=== PATIENT | female | born 1960 | race American Indian/Alaskan Native ===

== ENCOUNTER 2021-09-06 16:51 | Emergency (ER) | payer BC, SELFPAY ==
[2021-09-06 17:04] VITALS: BP 122/76; PULSE 77; RESP 14; TEMP 36.6; O2SAT 98; BMI 35.7
== END 2021-09-06 23:06 | disposition left against medical advice (07) ==
PROVIDERS: Emergency Provider Emergency Medicine; Family Provider Family Medicine; PCP Family Medicine
DX: Z53.21 Procedure and treatment not carried out due to patient leaving prior to being seen by health care provider (principal)
CPT/HCPCS: 99281

== ENCOUNTER → 2023-03-09 10:16 | Outpatient (CLI) | payer BC, SELFPAY ==
--- NOTE | 2023-03-09 10:18 | DI.RAD.S_ITS ---
PROCEDURE: XR FOOT RT MIN 3V INDICATIONS: foot pain TECHNIQUE: 3 views of the foot were acquired. COMPARISON: None. FINDINGS: Bones: No fractures or dislocations. No suspicious bony lesions. Plantar calcaneal spurring. Soft tissues: No tibiotalar joint effusion. Achilles tendon appears normal. IMPRESSION: No acute osseous abnormality. If pain persists with conservative management, consider repeat x-ray in 10-14 days or cross-sectional imaging. Dictated by: Dru Ray M.D. on 03/09/2023 at 11:07 Approved by: Dru Ray M.D. on 03/09/2023 at 11:09
--- NOTE | 2023-03-09 10:18 | DI.RAD.S_ITS ---
PROCEDURE: XR LUMBAR SPINE 2-3V INDICATIONS: back pain TECHNIQUE: 3 views of the lumbar spine were acquired. COMPARISON: None. FINDINGS: Bones: 5 [id number] vertebrae are present. There is normal bony alignment. No vertebral body compression fractures. No suspicious bony lesions. Degenerative changes of the lumbar spine with mild anterior osteophyte formation and facet arthropathy of the lower lumbar spine. Soft tissues: Overlying bowel gas pattern is normal. No suspicious soft tissue calcifications. Surgical clips projecting over the pelvis. IMPRESSION: Degenerative changes of the lumbar spine. No acute fractures. Dictated by: Dru Ray M.D. on 03/09/2023 at 11:06 Approved by: Dru Ray M.D. on 03/09/2023 at 11:07
[2023-03-09 11:21] LABS: Hematocrit 40.3 % (36-46); Hemoglobin 13.8 g/dL (12.0-16.0); Mean Corpuscular HGB Conc 34.4 % (30-36); Mean Corpuscular Hemoglobin 30.2 PG (26-34); Mean Corpuscular Volume 87.8 fL (80-100); Platelet Count 191 X10^3/uL (150-400); Red Blood Cell Count 4.59 X10^6/uL (4.0-5.2); Red Cell Distribution Width 12.8 % (11.6-14.8)
[2023-03-09 11:35] LABS: Alanine Aminotransferase 26 IU/L (<35); Albumin Globulin Ratio 1.6 (1.0-2.8); Alkaline Phosphatase 65 U/L (38-126); Aspartate Aminotransferase 24 IU/L (14-36); BUN Creatinine Ratio 23.2 (6-22); Bilirubin Total 0.6 mg/dL (0.2-1.3); Blood Urea Nitrogen 16 mg/dL (7-17); Calcium 9.2 mg/dL (8.4-10.2); Carbon Dioxide 29 mmol/L (22-32); Chloride 106 mmol/L (98-107); Cholesterol 145 mg/dL (140-199); Estimated Glomerular Filt Rate > 60 mL/min (>60); Globulin 2.5 g/dL (1.7-4.1); Glucose 106 mg/dL (80-110); HDL Cholesterol 39 mg/dL (40-60); HEMOLYSIS < 15 (0-50); LDL Cholesterol Calculated 79 mg/dL (<100); Potassium 4.5 mmol/L (3.4-5.1); Sodium 139 mmol/L (137-145); Total Protein 6.5 g/dL (6.3-8.2); Triglycerides 137 mg/dL (35-150)
[2023-03-09 11:56] LABS: TSH w/ Reflex to FT4 2.65 uIU/mL (0.47-4.68)
== END ==
PROVIDERS: Family Provider Family Medicine; PCP Internal Medicine; Referring Provider Internal Medicine; Visit Provider Internal Medicine
DX: M19.071 Primary osteoarthritis, right ankle and foot (principal); M47.816 Spondylosis without myelopathy or radiculopathy, lumbar region; M54.50 Low back pain, unspecified; E78.2 Mixed hyperlipidemia; R53.83 Other fatigue
CPT/HCPCS: 36415; 72100; 73630; 80053; 80061; 84443; 85027

== ENCOUNTER → 2023-04-01 13:02 | Outpatient (CLI) | payer BC, SELFPAY ==
--- NOTE | 2023-04-01 | DI.RAD.S_ITS ---
PROCEDURE: XR FOOT RT MIN 3V INDICATIONS: rt foot pain TECHNIQUE: 3 views of the foot were acquired. COMPARISON: [facility], , XR FOOT RT MIN 3V, 03/09/2023, 10:15. FINDINGS: Bones: No fractures or dislocations. No suspicious bony lesions. Accessory os peroneus. Plantar and posterior calcaneal spurs. Soft tissues: No tibiotalar joint effusion. Achilles tendon appears normal. IMPRESSION: No acute osseous finding. Dictated by: Fernie Castro M.D. on 04/01/2023 at 13:24 Approved by: Fernie Castro M.D. on 04/01/2023 at 13:26
== END ==
PROVIDERS: Family Provider Family Medicine; PCP Internal Medicine; Referring Provider Podiatrist Foot & Ankle Surgery; Visit Provider Podiatrist Foot & Ankle Surgery
DX: M79.671 Pain in right foot (principal)
CPT/HCPCS: 73630

== ENCOUNTER → 2023-06-22 16:05 | Outpatient (CLI) | payer BC, SELFPAY ==
--- NOTE | 2023-06-22 16:08 | DI.MG.S_ITS ---
BILATERAL DIGITAL SCREENING MAMMOGRAM 3D/2D WITH CAD: 06/22/2023 CLINICAL: Routine screening. Comparison is made to exams dated: 03/01/2021 mammogram, 04/17/2019 mammogram, and 06/20/2017 mammogram - [facility]. There are scattered areas of fibroglandular density in both breasts (category b / 25%-50% glandular tissue). Current study was also evaluated with a Computer Aided Detection (CAD) system. No significant masses, calcifications, or other findings are seen in either breast. There has been no significant interval change. IMPRESSION: NEGATIVE There is no mammographic evidence of malignancy. A 1 year screening mammogram is recommended. Based on the Tyrer Cuzick model (a risk assessment model) the patient's lifetime risk is 5.5% and her 10 year risk is 2.5%. According to the ACR, ACS, and NCCN guidelines, an annual breast MRI exam along with mammogram is recommended if the patient's lifetime risk is 20% or greater. This exam was interpreted at Station ID: [id number]. NOTE: For mammograms, a report in lay terms will be sent to the patient. Approximately 15% of breast malignancies will not be visualized mammographically. In the management of a palpable breast mass, a negative mammogram must not discourage biopsy of a clinically suspicious lesion. Electronically Signed By: Jamaal sánchez/yarelis:06/23/2023 08:33:21 letter sent: Normal Exam ACR BI-RADS Category 1: Negative [id number]
== END ==
PROVIDERS: Family Provider Family Medicine; PCP Internal Medicine; Referring Provider Internal Medicine; Visit Provider Internal Medicine
DX: Z12.31 Encounter for screening mammogram for malignant neoplasm of breast (principal)
CPT/HCPCS: 77063; 77067

== ENCOUNTER → 2023-06-28 09:25 | Outpatient (CLI) | payer BC, SELFPAY ==
--- NOTE | 2023-06-28 09:26 | DI.RAD.S_ITS ---
PROCEDURE: XR THORACIC SPINE 3V INDICATIONS: mid thoracic pain TECHNIQUE: 3 views of the thoracic spine were acquired. COMPARISON: None. FINDINGS: Bones: No fractures or dislocations. No suspicious bony lesions. 12 pairs of ribs are noted, and appear intact where visualized. Mild, multilevel disc height loss. ACDF of the lower cervical spine. Soft tissues: No paravertebral stripe thickening. IMPRESSION: Mild, multilevel degenerative disc disease. Dictated by: Aquiles Fry M.D. on 06/28/2023 at 9:56 Approved by: Aquiles Fry M.D. on 06/28/2023 at 9:56
== END ==
PROVIDERS: Family Provider Family Medicine; PCP Internal Medicine; Referring Provider Physical Medicine & Rehabilitation; Visit Provider Physical Medicine & Rehabilitation
DX: R07.81 Pleurodynia (principal); M47.814 Spondylosis without myelopathy or radiculopathy, thoracic region; Z98.1 Arthrodesis status
CPT/HCPCS: 72072

== ENCOUNTER → 2023-07-04 11:52 | Outpatient (CLI) | payer BC, SELFPAY ==
--- NOTE | 2023-07-04 11:54 | DI.MRI.S_ITS ---
PROCEDURE: MR THORACIC SPINE WO CON INDICATIONS: Thoracic radiculopathy TECHNIQUE: Noncontrast sagittal T1 spine echo and T2 fast spin echo, sagittal STIR, and T2 fast spin echo through the thoracic spine. COMPARISON: [facility], CR, XR THORACIC SPINE 3V, 06/28/2023, 9:31. [facility], MR, MR LUMBAR SPINE WO CON, 07/04/2023, 12:04. [facility], MR, T-SPINE WITHOUT CONTRAST, 01/04/2013, 15:36. FINDINGS: Image quality: Excellent. Alignment and Curvature: Accentuated thoracic kyphosis is seen. No focal AP alignment abnormality is seen. Bone Marrow: Marrow is of normal overall signal. Scattered foci are seen, which are hyperintense on T1-weighted and T2-weighted imaging, which are most consistent with benign vertebral body hemangiomas. The most prominent of these can be seen within the T11 and T12 vertebral bodies. The T11 lesion demonstrates a mild degree of increased STIR signal in this may be related to an atypical vertebral body hemangioma. No acute vertebral body compression fractures. Spinal Cord: Visualized spinal cord is normal in size and signal. Paraspinous Soft Tissues: No paravertebral masses. Miscellaneous: Lower cervical spine fixation hardware is partially seen. Mild generalized degenerative changes are seen throughout the thoracic spine. No significant neural foraminal or central canal narrowing can be seen. IMPRESSION: Generalized degenerative changes can be seen throughout the thoracic spine, with accentuated thoracic kyphosis. No significant neural foraminal or central canal narrowing can be seen. Dictated by: Benny Barajas M.D. on 07/04/2023 at 14:41 Approved by: Benny Barajas M.D. on 07/04/2023 at 14:43
--- NOTE | 2023-07-04 11:54 | DI.MRI.S_ITS ---
PROCEDURE: MR LUMBAR SPINE WO CON INDICATIONS: Lumbar facet arthropathy TECHNIQUE: Noncontrast sagittal T1 spin echo and T2 fast echo, sagittal STIR, and T2 fast spin echo through the lumbar spine. In cases with scoliosis, additional coronal T2 fast spin echo may be performed. COMPARISON: [facility], CR, XR THORACIC SPINE 3V, 06/28/2023, 9:31. [facility], MR, MR THORACIC SPINE WO CON, 07/04/2023, 12:04. FINDINGS: Image quality: Excellent. Alignment and Curvature: There is normal bony alignment. Bone Marrow: Marrow is of normal overall signal. Scattered foci are seen, which are hyperintense on T1-weighted and T2-weighted imaging, which are most consistent with benign vertebral body hemangiomas. No acute vertebral body compression fractures. Spinal Cord: Conus medullaris terminates at the L1-L2 level. Visualized cord demonstrates normal signal and size. Paraspinous Soft Tissues: No paravertebral masses. T12-L1: Normal appearance. L1-L2: Normal appearance. L2-L3: Normal appearance. L3-L4: The disc height and disk signal are relatively well-preserved. Mild to moderate disc bulge is seen, which is eccentric to the left. There is a left subarticular disc protrusion seen. Moderate facet hypertrophy is seen, left worse than right. There is moderate left-sided and no significant right-sided neural foraminal narrowing. Mild central canal narrowing is seen. L4-L5: The disc height and disk signal are relatively well-preserved. Mild to moderate disc bulge is seen, which is eccentric to the right. At least moderate facet hypertrophy is seen. There is moderate right-sided and [id number] left-sided neural foraminal narrowing. Minimal central canal narrowing is seen. L5-S1: The disc height and disk signal are relatively well-preserved. Mild to moderate disc bulge is seen. Mild to moderate facet hypertrophy can be seen. Moderate bilateral neural foraminal narrowing is seen. Mild central canal narrowing is seen. IMPRESSION: Lower lumbar spine degenerative changes are seen, with several sites of moderate neural foraminal narrowing. Dictated by: Benny Barajas M.D. on 07/04/2023 at 14:56 Approved by: Benny Barajas M.D. on 07/04/2023 at 14:59
== END ==
PROVIDERS: Family Provider Family Medicine; PCP Internal Medicine; Referring Provider Physical Medicine & Rehabilitation; Visit Provider Physical Medicine & Rehabilitation
DX: M47.816 Spondylosis without myelopathy or radiculopathy, lumbar region (principal); M47.817 Spondylosis without myelopathy or radiculopathy, lumbosacral region; M48.061 Spinal stenosis, lumbar region without neurogenic claudication; M48.07 Spinal stenosis, lumbosacral region; M47.24 Other spondylosis with radiculopathy, thoracic region; M40.204 Unspecified kyphosis, thoracic region
CPT/HCPCS: 72146; 72148

== ENCOUNTER 2023-07-11 12:37 | Day surgery (SDC) | payer BC, SELFPAY ==
--- NOTE | 2023-07-11 | PATH_ITS ---
[facility] Accession Number: [id number] No. of containers..01 Tissue . 01 Material submitted: . esophagus, E-G Junction - GE JUNCTION . 01 Diagnosis: Gastroesophageal Junction, Biopsy: Squamous mucosa with no diagnostic abnormality. Intraepithelial eosinophils are not increased. Negative for dysplasia and malignancy. [facility] 07/25/2023 0954 Local . 01 Electronically signed: . Angela Harrington MD, Pathologist NPI- [id number] . 01 Gross description: . GE JUNCTION : Received in formalin are 2 fragment(s) of ramos, soft tissue measuring 0.1 x 0.1 x 0.1 cm to 0.2 x 0.2 x 0.2 cm submitted entirely in 1 cassette(s) /JERZY 07/12/2023 1845 Local . 01 Pathologist provided ICD-10: R10.13 . 01 CPT . 085911 Specimen Comment: A courtesy copy of this report has been sent to [phone] Performed at: 01 [facility] [address] [place] [address], [place], [place] [id number] MD Kareem Escalante MD Phone: [phone]
[2023-07-11] MEDS: LACTATED RINGERS 1,000 ML 42 ML IV (13:12)
[2023-07-11 13:15] VITALS: BP 121/76; PULSE 70; RESP 16; TEMP 36.1; O2SAT 97; BMI 32.3
--- NOTE | 2023-07-11 13:44 | P.HP_ITS ---
History of Present Illness History of Present Illness Date Patient Seen: 07/11/23 Time Patient Seen: 13:44 Chief complaint: [facility] [place] Narrative: 63-year-old woman with a history of Rosales's esophagus and colonic polyps here for surveillance esophagoduodenoscopy and colonoscopy. One thousand seventeen she underwent colonoscopy and she recalls an EGD being performed approximately 3 years ago. It is unclear if she was diagnosed with Rosales's with or without dysplasia. No dysphagia no unintentional weight loss. She has a diagnosis of IBS and suffers from chronic constipation and diarrhea. No family history of intestinal malignancy. [facility] Medical History (Updated 06/28/23 @ 11:06 by John Hwang DO) Thoracic radiculopathy due to degenerative joint disease of spine Facet arthropathy, lumbar Facet arthropathy, thoracic Arthritis of right foot Irritable bowel syndrome with constipation and diarrhea Obesity (BMI 30.0-34.9) History of colonic polyps GERD without esophagitis Primary osteoarthritis involving multiple joints Chronic low back pain Surgical History (Updated 06/28/23 @ 11:06 by John Hwang DO) H/O cervical spine surgery Family History Father Lupus Mother Schizophrenia Social History details: , 1 daughter (other antiphosholipid age 38), rtd [place] [employer] household members: spouse Smoking Status: Former smoker Meds Home Medications and Allergies Home Medications Medication Instructions Recorded Confirmed Type ibuprofen 800 mg tablet 800 mg OR PRN PRN Pain (Scale 05/20/16 07/11/23 History Score 4-6) ##0 omeprazole 20 mg tablet,delayed 20 mg OR QDAY ##0 05/20/16 07/11/23 History release celecoxib 200 mg capsule (Celebrex) 200 mg PO DAILY #30 caps 06/28/23 07/11/23 Rx methocarbamol 500 mg tablet 500 mg PO TID #60 tabs 06/28/23 07/11/23 Rx Allergies Allergy/AdvReac Type Severity Reaction Status Date / Time cyclobenzaprine Allergy Severe Difficulty Verified 07/11/23 13:13 [From FLEXERIL] Breathing nut - unspecified Allergy Severe Difficulty Verified 07/11/23 13:15 Breathing acetaminophen [From VICODIN] AdvReac Intermediate Verified 07/11/23 13:13 gabapentin [GABAPENTIN] AdvReac Intermediate Verified 07/11/23 13:13 hydrocodone [From VICODIN] AdvReac Intermediate Verified 07/11/23 13:13 milnacipran [From SAVELLA] AdvReac Mild Verified 07/11/23 13:13 Exam Vital Signs (past 8 hours): - 07/11/23 13:15 Temperature 96.9 F L Pulse Rate 70 Respiratory Rate 16 Blood Pressure 121/76 Pulse Oximetry 97 Oxygen Delivery Method Room Air Oxygen Delivery Method Room Air Narrative Exam Narrative: General adult woman alert oriented no acute distress Chest nonlabored respiration Extremities warm well perfused Assessment & Plan Assessment and plan (1) Barretts esophagus: Qualifiers: Rosales's esophagus type: without dysplasia Qualified Code(s): K22.70 - Rosales's esophagus without dysplasia Status: Acute Assessment & Plan narrative: 63-year-old woman history of Rosales's esophagus and colonic polyps here for screening esophagoduodenoscopy and colonoscopy. Overview of the procedures was discussed. Procedural risks including hemorrhage, missed diagnosis, intestinal injury were discussed. Questions have been answered and she is in agreement with this plan. She provides her written and verbal consent to proceed.
[2023-07-11 14:27] VITALS: BP 122/77; PULSE 63; RESP 20; TEMP 36.1; O2SAT 100
--- NOTE | 2023-07-11 14:29 | P.OP.EGD&C_ITS ---
Operative Date/Time/Diagnoses Date of procedure: 07/11/23 Time of procedure: 14:29 Pre-op diagnosis: Barretts esophagus Procedure & Clinicians Study performed: Esophagoduodenoscopy and colonoscopy Same procedure as scheduled: Yes Indications: History of Rosales's esophagus Colorectal screening Surgeon: Trever Weber Procedure Notes Procedure in detail: The history and physical was performed/updated and the patient is ASA class is 2. The procedure was discussed in detail with the patient. Potential risks complications including infection, bleeding, missed diagnosis, perforation, need for surgery, and were explained. Their questions were answered and inf ormed consent was obtained. Patient placed in left lateral decubitus position. Time out was performed. Procedural sedation was administered by Anesthesia. A bite block was placed. the scope was inserted into the mouth and advanced through the esophagus and into the stomach. The stomach was without masses, ulcers or gastritis. The pylorus was intubated and the duodenum was normal to the 2nd portion. The scope was retroflexed within the stomach . The scope was withdrawn into the esophagus the Z line was seen at 35 cm from the incisions. Stomach was desufflated and scope removed. Examination began with a thorough inspection of the perianal area there was no evidence of fissures, fistulae, external hemorrhoids or cutaneous malignancy. The colonoscopy scope was then placed into the anal canal and was advanced to the cecum, which was identified by the ileocecal valve, the appendiceal orifice and the confluence of the taenia. The scope was then slowly withdrawn examining colon thoroughly in all directions, irrigating it of any residual stool. The patient tolerated the procedure well. They will be discharged once criteria are met. The prep was of good/excellent quality. The withdrawl time was 6 minutes. Findings -No esophagitis. Multiple biopsies of GE junction taken with forceps -Unremarkable colonoscopy, no masses, polyps or inflamation Specimen(s): other (GE junction) Impression: Normal EGD and Colonoscopy Post-procedure Plan for aftercare: Follow up dependent on pathology findings Disposition: same day surgery
[2023-07-11 14:32] VITALS: BP 128/73; PULSE 72; RESP 20; O2SAT 97
[2023-07-11 14:37] VITALS: BP 122/80; PULSE 66; RESP 20; O2SAT 98
[2023-07-11 14:42] VITALS: BP 113/70; PULSE 65; RESP 20; O2SAT 98
[2023-07-11 14:50] VITALS: BP 130/74; PULSE 62; RESP 16; TEMP 36.4; O2SAT 98
== END 2023-07-11 15:00 | disposition home or self-care (01) ==
PROVIDERS: Family Provider Family Medicine; PCP Internal Medicine; Referring Provider Surgery; Visit Provider Surgery
PROC: 0DJ08ZZ Inspection of Upper Intestinal Tract, Via Natural or Artificial Opening Endoscopic (ICD-10-PCS; CPT 45378; principal; 2023-07-11 14:00)
PROC: 0DJD8ZZ Inspection of Lower Intestinal Tract, Via Natural or Artificial Opening Endoscopic (ICD-10-PCS; CPT 45378; 2023-07-11 14:00)
DX: Z12.11 Encounter for screening for malignant neoplasm of colon (principal); K22.70 Barrett's esophagus without dysplasia
CPT/HCPCS: 45378; 43239; J2704

== ENCOUNTER → 2024-03-14 09:49 | Outpatient (CLI) | payer BC, SELFPAY ==
[2024-03-14 10:31] LABS: Cholesterol 188 mg/dL (140-199); Glucose 92 mg/dL (80-110); HDL Cholesterol 53 mg/dL (40-60); LDL Cholesterol Calculated 110 mg/dL (<100); Triglycerides 125 mg/dL (35-150)
[2024-03-14 13:23] LABS: Hemoglobin A1C% w Est Avg Glu 5.5 % (4.0-6.0)
== END ==
PROVIDERS: Family Provider Family Medicine; PCP Internal Medicine; Referring Provider Internal Medicine; Visit Provider Internal Medicine
DX: Z00.00 Encounter for general adult medical examination without abnormal findings (principal); R73.01 Impaired fasting glucose
CPT/HCPCS: 36415; 80061; 82947; 83036

== ENCOUNTER → 2025-02-16 09:48 | Outpatient (CLI) | payer MEDICARE, BC, SELFPAY | PROVIDERS: Family Provider Family Medicine; PCP Internal Medicine; Visit Provider Chiropractor | DX: R30.0 Dysuria (principal) | CPT/HCPCS: 87077; 87086 ==

== ENCOUNTER → 2025-03-06 12:44 | Outpatient (CLI) | payer MEDICARE, BC, SELFPAY | PROVIDERS: Family Provider Family Medicine; PCP Internal Medicine; Visit Provider Student in an Organized Health Care Education/Training Program | DX: R30.0 Dysuria (principal) | CPT/HCPCS: 87086; 87210 ==

== ENCOUNTER → 2025-03-10 10:57 | Outpatient (CLI) | payer MEDICARE, BC, SELFPAY ==
[2025-03-10 11:46] LABS: Hemoglobin A1C% w Est Avg Glu 5.2 % (4.0-6.0)
[2025-03-10 11:50] LABS: Blood Urea Nitrogen 16 mg/dL (7-17); Calcium 9.4 mg/dL (8.4-10.2); Carbon Dioxide 25 mmol/L (22-32); Chloride 107 mmol/L (98-107); Cholesterol 170 mg/dL (140-199); Estimated Glomerular Filt Rate > 60 mL/min (>60); Glucose 94 mg/dL (70-99); HDL Cholesterol 41 mg/dL (40-60); HEMOLYSIS < 15 (0-50); Potassium 5.1 mmol/L (3.4-5.1); Sodium 140 mmol/L (137-145); Triglycerides 149 mg/dL (35-150)
== END ==
PROVIDERS: PCP Internal Medicine; Referring Provider Internal Medicine; Visit Provider Internal Medicine
DX: R73.01 Impaired fasting glucose (principal); E78.2 Mixed hyperlipidemia
CPT/HCPCS: 36415; 80048; 80061; 83036